=== PATIENT | male | born 1950 | race Caucasian/White ===

== ENCOUNTER 2017-12-07 14:37 | Inpatient (IN) | payer MEDICARE ==
[~2017-12-07] VITALS: Ht 170.2 cm; Wt 82.6 kg
--- NOTE | ~2017-12-07 | PN ---
PATIENT:QUINTON VEGAS MEDICAL RECORD: [id number] LOCATION:[facility] Gilbert ADMISSION DATE: 12/07/17 PROGRESS NOTE DATE OF SERVICE: 01/02/2018 SUBJECTIVE: The patient's case was discussed with staff. He has no new complaint. OBJECTIVE: The patient is minimally responsive, although he is awake and is moaning. He clearly is distressed physically and emotionally, but efforts to help him have so far been completely ineffective. He is still not eating. He did take a few ice chips yesterday. ASSESSMENT: No change in diagnoses. PLAN: The patient has end-stage dementia. He is going to be transitioned back to the alf and will have comfort care measures provided. His long-term prognosis is guarded. TRANSINT:[id number] Voice Confirmation ID: [id number] DOCUMENT ID: [id number] ROSANNA MC MD at 1223 CC: [id number] DICTATION DATE: 01/02/18 1430 MANUAL QA TESTER: 01/02/18 1533 DIS IN 01/02/18 [place] [place] [address]
--- NOTE | ~2017-12-07 | PN ---
PATIENT:QUINTON VEGAS MEDICAL RECORD: [id number] LOCATION:CarmenAUTUMNGabe AlvaradoJonathan ADMISSION DATE: 12/07/17 PROGRESS NOTE DATE OF SERVICE: 12/16/2017 SUBJECTIVE: The patient's case was discussed with staff. He has no new complaint. OBJECTIVE: The patient is in good behavioral control with limited insight about his condition. He has not been p.r.n. for 2 days. ASSESSMENT: No change in diagnoses. PLAN: Supportive and educational interventions were made. Long-term prognosis is guarded. TRANSINT:[id number] Voice Confirmation ID: [id number] DOCUMENT ID: [id number] ROSANNA MC MD at 1151 CC: [id number] DICTATION DATE: 12/16/17 1448 VENEREAL DISEASE INVESTIGATOR: 12/16/17 1633 ADM IN [place] [place] [address]
--- NOTE | ~2017-12-07 | PN ---
PATIENT:QUINTON VEGAS MEDICAL RECORD: [id number] LOCATION:MICHAEL [facility] ADMISSION DATE: 12/07/17 PROGRESS NOTE DATE OF SERVICE: 12/25/2017 SUBJECTIVE: The patient's case was discussed with staff. He has no new complaint. OBJECTIVE: The patient denies intent to harm himself or others. He generally tolerates his medicines well. ASSESSMENT: No change in diagnoses. PLAN: Supportive and educational interventions were made. Long-term prognosis is guarded. TRANSINT:[id number] Voice Confirmation ID: [id number] DOCUMENT ID: [id number] ROSANNA MC MD at 1100 CC: [id number] DICTATION DATE: 12/25/17 1125 RN ACUTE DIALYSIS: 12/25/17 1350 ADM IN [place] [place] [address]
--- NOTE | ~2017-12-07 | PN ---
PATIENT:QUINTON VEGAS MEDICAL RECORD: [id number] LOCATION:[facility] ADMISSION DATE: 12/07/17 PROGRESS NOTE DATE OF SERVICE: 12/13/2017 SUBJECTIVE: The patient's case was discussed with staff. He has no new complaint. OBJECTIVE: The patient denies intent to harm himself or others, but he is very disorganized and has been very aggressive and has required multiple doses of p.r.n. Haldol and Ativan. ASSESSMENT: No change in diagnoses. PLAN: The patient is going to be changed to a p.r.n. of Geodon. His long-term prognosis is guarded. TRANSINT:[id number] Voice Confirmation ID: [id number] DOCUMENT ID: [id number] ROSANNA MC MD at 1419 CC: [id number] DICTATION DATE: 12/13/17 1454 REHAB CONSULTANT: 12/13/17 1551 ADM IN [facility] [address] [place] [address]
--- NOTE | ~2017-12-07 | PN ---
PATIENT:QUINTON VEGAS MEDICAL RECORD: [id number] LOCATION:MICHA[facility] ADMISSION DATE: 12/07/17 PROGRESS NOTE DATE OF SERVICE: 12/09/2017 SUBJECTIVE: The patient's case was discussed with staff. He has no new complaint. OBJECTIVE: The patient is significantly agitated. He has been disruptive at times. He required p.r.n. medications on 2 occasions last night. He has little or no recollection of these events and does look a little bit sedated today. ASSESSMENT: No change in diagnoses. PLAN: I am going to start the patient on a scheduled dose of Geodon and will discontinue his Seroquel. I think his long-term prognosis is guarded. TRANSINT:[id number] Voice Confirmation ID: [id number] DOCUMENT ID: [id number] ROSANNA MC MD at 1234 CC: [id number] DICTATION DATE: 12/09/17 1440 COLLECTION ANALYST: 12/09/17 1513 ADM IN [place] [address] [place] [address]
--- NOTE | ~2017-12-07 | PN ---
PATIENT:QUINTON VEGAS MEDICAL RECORD: [id number] LOCATION:[facility] ADMISSION DATE: 12/07/17 PROGRESS NOTE DATE OF SERVICE: 12/22/2017 SUBJECTIVE: The patient's case was discussed with staff. He has no new complaint. OBJECTIVE: The patient is in good behavioral control with limited insight about his condition. He did require p.r.n. medications last night because of some agitation. ASSESSMENT: No change in diagnoses. PLAN: I will check another Depakote level today. I think his long-term prognosis is guarded. Despite the p.r.n. he had last night, he is clearly significantly better. TRANSINT:[id number] Voice Confirmation ID: [id number] DOCUMENT ID: [id number] ROSANNA MC MD at 1613 CC: [id number] DICTATION DATE: 12/22/17 1222 CHARTER BOAT OPERATOR: 12/22/17 1230 ADM IN [id number] [place] [address]
--- NOTE | ~2017-12-07 | PN ---
PATIENT:QUINTON VEGAS MEDICAL RECORD: [id number] LOCATION:MICHAEL Gilbert ADMISSION DATE: 12/07/17 PROGRESS NOTE DATE OF SERVICE: 12/31/2017 SUBJECTIVE: The patient's case was discussed with staff. He has no new complaint. OBJECTIVE: The patient is in good behavioral control with limited insight about his condition. He tolerates his medicines well. ASSESSMENT: No change in diagnoses. PLAN: Current medicines and therapies have been reviewed. The patient is going to be made comfortable. He has very poor insight about his situation. TRANSINT:[id number] Voice Confirmation ID: [id number] DOCUMENT ID: [id number] ROSANNA MC MD at 1054 CC: [id number] DICTATION DATE: 12/31/17947 READINESS PARAPROFESSIONAL: 12/31/17 1111 ADM IN [facility] [address] [place] [address]
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
--- NOTE | ~2017-12-07 | PN ---
PATIENT:QUINTON VEGAS MEDICAL RECORD: [id number] LOCATION:MICHA[facility] ADMISSION DATE: 12/07/17 PROGRESS NOTE DATE OF SERVICE: 12/11/2017 SUBJECTIVE: The patient's case was discussed with staff. He has no new complaint. OBJECTIVE: The patient is in good behavioral control with limited insight about his condition. He does tolerate his medicines well. ASSESSMENT: No change in diagnoses. PLAN: Brief supportive and educational interventions were made. The patient apparently had a lot of trouble last night with agitation and required p.r.n. Haldol and Ativan. I am going to increase the dose of his scheduled Klonopin secondary to some underlying anxiety that I think he displays through agitated behavior. TRANSINT:[id number] Voice Confirmation ID: [id number] DOCUMENT ID: [id number] ROSANNA MC MD at 1351 CC: [id number] DICTATION DATE: 12/11/17 1253 PEN TENDER: 12/11/172013 ADM IN [facility] [address] [place] [address]
--- NOTE | ~2017-12-07 | PN ---
PATIENT:QUINTON VEGAS MEDICAL RECORD: [id number] LOCATION:MICHAEL Gilbert ADMISSION DATE: 12/07/17 PROGRESS NOTE DATE OF SERVICE: 12/21/2017 SUBJECTIVE: The patient's case was discussed with staff. He has no new complaint. OBJECTIVE: The patient is in good behavioral control and significantly better with his behavior. ASSESSMENT: No change in diagnoses. PLAN: Current medicines have been reviewed. His Depakote level was therapeutic. He did require p.r.n. Geodon last night, but I believe this is the first time he has required anything in a couple of days. He is also eating better. I plan to keep him on his current medications. TRANSINT:[id number] Voice Confirmation ID: [id number] DOCUMENT ID: [id number] ROSANNA MC MD at 1127 CC: [id number] DICTATION DATE: 12/21/17 1028 CLIP LOADING MACHINE FEEDER: 12/21/17 1112 ADM IN [facility] [address] [place] [address]
--- NOTE | ~2017-12-07 | PN ---
PATIENT:QUINTON VEGAS MEDICAL RECORD: [id number] LOCATION:MICHAEL Gilbert ADMISSION DATE: 12/07/17 PROGRESS NOTE DATE OF SERVICE: 12/12/2017 SUBJECTIVE: The patient's case was discussed with staff. He has no new complaint. OBJECTIVE: The patient continues to be intermittently aggressive and difficult to redirect. He is often quite agitated. ASSESSMENT: No change in diagnoses. PLAN: Current medicines have been reviewed and will be maintained. His long-term prognosis is guarded. I am going to check levels of his anticonvulsants. TRANSINT:[id number] Voice Confirmation ID: [id number] DOCUMENT ID: [id number] ROSANNA MC MD at 1416 CC: [id number] DICTATION DATE: 12/12/17 1631 MANAGER OF BUSINESS OPERATIONS: 12/12/17 1715 ADM IN [facility] [address] [place] [address]
--- NOTE | ~2017-12-07 | PN ---
PATIENT:QUINTON VEGAS MEDICAL RECORD: [id number] LOCATION:JennyTHUANGabe AlvaradoJonathan ADMISSION DATE: 12/07/17 PROGRESS NOTE DATE OF SERVICE: 12/14/2017 SUBJECTIVE: The patient's case was discussed with staff. He has no new complaint. OBJECTIVE: The patient is in good behavioral control with limited insight about his condition. He does tolerate his medicines well. He was refusing his medicines today. Earlier in the day and last night, he was quite agitated and required p.r.n. medication. ASSESSMENT: No change in diagnoses. PLAN: Brief supportive and educational interventions were made. The patient will be maintained on current medicines. TRANSINT:[id number] Voice Confirmation ID: [id number] DOCUMENT ID: [id number] ROSANNA MC MD at 1340 CC: [id number] DICTATION DATE: 12/14/17 1446 MECHANIST: 12/14/17 1545 ADM IN [id number] [place] [address]
--- NOTE | ~2017-12-07 | PN ---
PATIENT:QUINTON VEGAS MEDICAL RECORD: [id number] LOCATION:MICHA[facility] ADMISSION DATE: 12/07/17 PROGRESS NOTE DATE OF SERVICE: 12/23/2017 SUBJECTIVE: The patient's case was discussed with staff. He has no new complaint. OBJECTIVE: The patient denies intent to harm himself or others. He generally tolerates his medicines well. Eye contact is fair. ASSESSMENT: No change in diagnoses. PLAN: Current medicines and therapies have been reviewed. Long-term prognosis is guarded. TRANSINT:[id number] Voice Confirmation ID: [id number] DOCUMENT ID: [id number] ROSANNA MC MD at 1007 CC: [id number] DICTATION DATE: 12/23/17 1650 SOFTWARE PRODUCT SPECIALIST: 12/23/17 1707 ADM IN [id number] [place] [address]
--- NOTE | ~2017-12-07 | PN ---
PATIENT:QUINTON VEGAS MEDICAL RECORD: [id number] LOCATION:MICHAEL Gilbert ADMISSION DATE: 12/07/17 PROGRESS NOTE DATE OF SERVICE: 01/01/2018 SUBJECTIVE: The patient's case was discussed with staff. He has no new complaint. OBJECTIVE: The patient is disorganized and extremely agitated. It was noticed yesterday that he had not produced urine and he was catheterized and had 1000 cc of drainage. He now has an indwelling Knight catheter. He continues to be extremely distressed and is clearly in need of comfort care measures. ASSESSMENT: No change in diagnoses. PLAN: The patient will be maintained on current medicines. His long-term prognosis is guarded. I am going to place a Duragesic patch on him for his comfort. He is already receiving Geodon and Klonopin. TRANSINT:[id number] Voice Confirmation ID: [id number] DOCUMENT ID: [id number] ROSANNA MC MD at 1417 CC: [id number] DICTATION DATE: 01/01/18 1120 ARCHITECTURE DRAFTER: 01/01/18 1307 ADM IN [facility] [address] [place] [address]
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
--- NOTE | ~2017-12-07 | PN ---
PATIENT:QUINTON VEGAS MEDICAL RECORD: [id number] LOCATION:MICHAEL Alvarado113 ADMISSION DATE: 12/07/17 PROGRESS NOTE DATE OF SERVICE: 12/29/2017 SUBJECTIVE: The patient's case was discussed with staff. He has no new complaint. OBJECTIVE: The patient denies intent to harm himself or others. He generally tolerates his medicines well. He is extremely confused. He is not eating. ASSESSMENT: No change in diagnoses. PLAN: I am going to check some baseline labs to see if the patient is dehydrated. I am also very pessimistic about his long-term well being. I have asked hospice to evaluate him for possible comfort care measures. He seems to have no intermediate ground between being overly sedated and completely unmanageable as it is documented extensively by nursing staff and myself throughout this lengthy stay. TRANSINT:[id number] Voice Confirmation ID: [id number] DOCUMENT ID: [id number] ROSANNA MC MD at 1024 CC: [id number] DICTATION DATE: 12/29/17 1038 ASSISTANT COMMUNITY DIRECTOR: 12/29/17 1126 ADM IN [facility] [address] [place] [address]
--- NOTE | ~2017-12-07 | PN ---
PATIENT:QUINTON VEGAS MEDICAL RECORD: [id number] LOCATION:MICHAEL AlvaradoJonathan ADMISSION DATE: 12/07/17 PROGRESS NOTE DATE OF SERVICE: 12/28/2017 OBJECTIVE: The patient continues to be disruptive and agitated. He is also somewhat sedated, but still restless and agitated. He is not eating well at all. I have started him on Megace. ASSESSMENT: No change in diagnoses. PLAN: Brief supportive and educational interventions were made. Long-term prognosis is guarded. I have reduced his scheduled dose of Geodon slightly. TRANSINT:[id number] Voice Confirmation ID: [id number] DOCUMENT ID: [id number] ROSANNA MC MD at 0951 CC: [id number] DICTATION DATE: 12/28/17925 DE ICER ELEMENT WINDER: 12/28/17 1205 ADM IN [place] [address] [place] [id number]
--- NOTE | ~2017-12-07 | PN ---
PATIENT:QUINTON VEGAS MEDICAL RECORD: [id number] LOCATION:MICHAEL Gilbert ADMISSION DATE: 12/07/17 PROGRESS NOTE DATE OF SERVICE: 12/20/2017 SUBJECTIVE: The patient's case was discussed with staff. He has no new complaint. OBJECTIVE: The patient is still quite confused. He did require p.r.n. medication yesterday. ASSESSMENT: No change in diagnoses. PLAN: The patient is severely impaired cognitively. His long-term prognosis is guarded. I am going to ask for a Depakote level. TRANSINT:[id number] Voice Confirmation ID: [id number] DOCUMENT ID: [id number] ROSANNA MC MD at 0827 CC: [id number] DICTATION DATE: 12/20/17 1436 FELTMAKER: 12/20/17 [address] [facility] [address] [place] [address]
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
--- NOTE | ~2017-12-07 | PN ---
PATIENT:QUINTON VEGAS MEDICAL RECORD: [id number] LOCATION:MICHAEL CarmenBettye ADMISSION DATE: 12/07/17 PROGRESS NOTE DATE OF SERVICE: 12/17/2017 SUBJECTIVE: The patient's case was discussed with staff. He has no new complaint. OBJECTIVE: The patient is taking his scheduled medicines. He has not had a p.r.n. medication for a couple of days. He is calmer, but very disorganized and only oriented to person. ASSESSMENT: No change in diagnoses. PLAN: Current medicines have been reviewed and will be maintained. Long-term prognosis is guarded. TRANSINT:[id number] Voice Confirmation ID: [id number] DOCUMENT ID: [id number] ROSANNA MC MD at 1157 CC: [id number] DICTATION DATE: 12/17/171206 WELFARE SPECIALIST: 12/17/17 1212 ADM IN [place] [id number] [place] [id number]
--- NOTE | ~2017-12-07 | PN ---
PATIENT:QUINTON VEGAS MEDICAL RECORD: [id number] LOCATION:MICHAEL Gilbert ADMISSION DATE: 12/07/17 PROGRESS NOTE DATE OF SERVICE: 12/09/2017 SUBJECTIVE: The patient's case was discussed with staff. He has no new complaint. OBJECTIVE: The patient denies intent to harm himself or others. He does tolerate his medicines well. He did require some p.r.n. medication last night. ASSESSMENT: No change in diagnoses. PLAN: Current medicines have been reviewed, both will be maintained. His Depakote level is low. I think he has not been compliant with it. I will check another Dilantin and Depakote level in a couple of days. TRANSINT:[id number] Voice Confirmation ID: [id number] DOCUMENT ID: [id number] ROSANNA MC MD at 1226 CC: [id number] DICTATION DATE: 12/10/17 1256 LOAD OUT PERSON: 12/10/17 1323 ADM IN [place] [id number] [place] [id number]
--- NOTE | ~2017-12-07 | PN ---
PATIENT:QUINTON VEGAS MEDICAL RECORD: [id number] LOCATION:MICHAEL Gilbert ADMISSION DATE: 12/07/17 PROGRESS NOTE DATE OF SERVICE: 12/26/2017 SUBJECTIVE: The patient's case was discussed with staff. He has no new complaint. OBJECTIVE: The patient denies intent to harm himself or others. He is significantly calmer today. ASSESSMENT: No change in diagnoses. PLAN: Supportive and educational interventions were made. Long-term prognosis is guarded. I am going to check another Depakote level since the last level he ran would be inconsistent with the amount that he is taking. There are some intermittent difficulties with getting him to take medications, so checking the level which I would anticipate should be around 90-100 would give me a good indication as to how much of his medicine he is actually getting. TRANSINT:[id number] Voice Confirmation ID: [id number] DOCUMENT ID: [id number] ROSANNA MC MD at 1348 CC: [id number] DICTATION DATE: 12/26/17 1133 RESEARCH RN SPEC: 12/26/17 1437 ADM IN [facility] [address] [place] [id number]
--- NOTE | ~2017-12-07 | PN ---
PATIENT:QUINTON VEGAS MEDICAL RECORD: [id number] LOCATION:MICHAEL Gilbert ADMISSION DATE: 12/07/17 PROGRESS NOTE DATE OF SERVICE: 12/15/2017 SUBJECTIVE: The patient's case was discussed with staff. He has no new complaint. OBJECTIVE: The patient has limited insight about his condition. He is still quite confused and at times easily agitated, but he seems a little bit better today. ASSESSMENT: No change in diagnoses. PLAN: The patient is taking a substantial dose of Klonopin and a moderate dose of Geodon. He has had a couple of times where he is not actively taken the medications and so I am not entirely sure that he is consistently getting it. I have checked a Depakote level and a Dilantin level. The Dilantin level is only mildly subtherapeutic. The Depakote level is nicely therapeutic. ASSESSMENT: No change in diagnoses. PLAN: Current medicines and therapies have been reviewed and will be maintained. Long-term prognosis is guarded. TRANSINT:[id number] Voice Confirmation ID: [id number] DOCUMENT ID: [id number] ROSANNA MC MD at 1406 CC: [id number] DICTATION DATE: 12/15/17 1453 CASING INSPECTOR: 12/15/17 1503 ADM IN [place] [place] [address]
--- NOTE | ~2017-12-07 | PN ---
PATIENT:QUINTON VEGAS MEDICAL RECORD: [id number] LOCATION:[facility] ADMISSION DATE: 12/07/17 PROGRESS NOTE DATE OF SERVICE: 12/18/2017 SUBJECTIVE: The patient's case was discussed with staff. He has no new complaint. OBJECTIVE: The patient does appear a little sedated, but he is still combative with personal care. He has not had a p.r.n. medication for a couple of days now. ASSESSMENT: No change in diagnoses. PLAN: Brief supportive and educational interventions were made. I am going to order basic labs since he is not eating adequately. TRANSINT:[id number] Voice Confirmation ID: [id number] DOCUMENT ID: [id number] ROSANNA MC MD at 1426 CC: [id number] DICTATION DATE: 12/18/17 1225 CHIEF NURSING EXECUTIVE: 12/18/17 1230 ADM IN [place] [id number] [place] [address]
--- NOTE | ~2017-12-07 | PN ---
PATIENT:QUINTON VEGAS MEDICAL RECORD: [id number] LOCATION:[facility] ADMISSION DATE: 12/07/17 PROGRESS NOTE DATE OF SERVICE: 12/30/2017 SUBJECTIVE: The patient's case was discussed with staff. He has no new complaint. OBJECTIVE: The patient denies intent to harm himself or others. He generally tolerates his medicines well. ASSESSMENT: No change in diagnoses. PLAN: Supportive and educational interventions were made. Long-term prognosis is guarded. He has been accepted into hospice and the efforts over the weekend will be just to make him comfortable and then transition back care to the long term. He is an end-stage dementia patient who is very restless and uncomfortable and I think that the decision to go with hospice was a good one and best under the overall circumstances. TRANSINT:[id number] Voice Confirmation ID: [id number] DOCUMENT ID: [id number] ROSANNA MC MD at 0926 CC: [id number] DICTATION DATE: 12/30/17 1109 STRUCTURES MECHANIC: 12/30/17 1143 ADM IN [facility] [address] [place] [address]
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
[~2017-12-07 14:37] MED LIST: ACETAMINOPHEN325 MG PO; ADVAIR 250/501 DISK INH; ALLEGRA-D1 TAB.SR . PO; BAYER CHEWABLE81 MG PO; BUSPAR10 MG PO; CARDURA8 MG PO; COREG 3.1253.125 MG PO; DULCOLAX5 MG PO; FLUTICASONE PRO16 GM NASAL; FOLIC ACID0.8 MG PO; MELATONIN 3 MG1 TAB PO; NITROSTAT0.4 MG SL; PROZAC10 MG PO; SEROQUEL100 MG PO; SPIRIVA18 MCG INH; VITAMIN D5000 UNIT PO; ZOCOR40 MG PO
[2017-12-07] MEDS ORDERED: LIPITOR40 MG PO (16:37)
[2017-12-07] MEDS ORDERED: BENZTROPINE ME0.5 MG PO (16:38)
[2017-12-07] MEDS ORDERED: BREO ELLIPTA 11 EACH INH (16:40)
[2017-12-07] MEDS ORDERED: KLONOPIN0.5 MG PO (16:41)
[2017-12-07] MEDS ORDERED: DEPAKENE 2250 MG/5 M PO (16:43)
[2017-12-07] MEDS ORDERED: ZYRTEC10 MG PO (16:47)
[2017-12-07] MEDS ORDERED: DEPAKOTE ER500 MG PO (16:49)
[2017-12-07] MEDS ORDERED: FLOMAX0.4 MG PO (16:51)
[2017-12-07] MEDS ORDERED: DILANTIN 12525 MG/ML PT (16:52)
[2017-12-07] MEDS ORDERED: FOLIC ACID1 MG PO (16:52)
[2017-12-07] MEDS ORDERED: ISOSORBIDE MONO30 M1 PO (16:54)
[2017-12-07] MEDS ORDERED: MULTI-DAY VITAM1 TAB PO (16:56)
[2017-12-07] MEDS ORDERED: NITROSTAT0.4 MG SL (16:57)
[2017-12-07] MEDS ORDERED: PHENOBARBI20 MG/5 ML PO (17:00)
[2017-12-07] MEDS ORDERED: REMERON15 MG PO (17:01)
[2017-12-07] MEDS ORDERED: K-TAB10 MEQ PO (17:01)
[2017-12-07] MEDS ORDERED: SEROQUEL50 MG PO (17:03)
[2017-12-07] MEDS ORDERED: ZOLOFT50 MG PO (17:04)
[2017-12-07] MEDS ORDERED: TRAZODONE HCL100 MG PO (17:06)
[2017-12-07] MEDS ORDERED: ACETAMINOPHEN325 MG PO (17:07)
[2017-12-07] MEDS ORDERED: VITAMIN D250000 UNIT PO (17:09)
[2017-12-07 18:10] VITALS: BP 89/60; BMI 29.4
[2017-12-08 10:29] VITALS: BMI 29.4
[2017-12-08 11:20] LABS: BASOPHILS 0.6 % (0-2); EOSINOPHILS 3.5 % (0-7); HEMATOCRIT 48.5 % (42.0-54.0); HEMOGLOBIN 16.2 g/dL (13.5-17.5); IMMATURE GRANULOCYTES 0.4 % (0-5); LYMPHOCYTES 32.3 % (15-50); MCH 30.1 pg (26.0-34.0); MCHC 33.4 g/dL (31.0-37.0); MCV 90.1 fL (80.0-100.0); MEAN PLATELET VOLUME 10.2 fL (7.4-10.4); MONOCYTES 9.2 % (2-11); RBC 5.38 10x6/uL (4.20-6.10); WBC 7.1 10x3/uL (4.8-10.8)
[2017-12-08 11:21] LABS: PLATELET COUNT 220 10x3/uL (130-400)
[2017-12-08 11:54] LABS: ALBUMIN 3.4 g/dL (3.4-5.0); ALKALINE PHOSPHATASE 77 U/L (46-116); ALT (SGPT) 66 U/L (10-68); BILIRUBIN - TOTAL 0.39 mg/dL (0.2-1.3); CALC OSMOLALITY 279 mosm/kg (275-300); CALCIUM 8.9 mg/dL (8.5-10.1); CARBON DIOXIDE 26.9 mmol/L (21.0-32.0); CHLORIDE - SERUM 105 mmol/L (98-107); CHOL - HDL RATIO 5.7 ratio (2.3-4.9); CHOLESTEROL, TOTAL 181 mg/dL (0-200); CREATININE - SERUM 0.8 mg/dL (0.6-1.3); HDL CHOLESTEROL 32 mg/dL (32-96); LDL CHOLESTEROL 124 mg/dL (0-100); LDL-HDL RATIO 3.9 ratio (1.5-3.5); PHENYTOIN (DILANTIN) 9.3 ug/mL (10.0-20.0); POTASSIUM - SERUM 4.2 mmol/L (3.5-5.1); PROTEIN - SERUM 7.1 g/dL (6.4-8.2); SODIUM 140 mmol/L (136-145); THYROID STIMULATING HORMONE 1.48 uIU/mL (0.36-3.74); TRIGLYCERIDE 129 mg/dL (30-200); UREA NITROGEN 9 mg/dL (7-18); VALPROIC ACID (DEPAKOTE) 22.1 ug/mL (50.0-100.0); eGFR NON AFRICAN AMERICAN > 90 mL/min (90-120)
[2017-12-08 11:57] LABS: GLUCOSE 135 mg/dL (74-106)
[2017-12-08 13:38] VITALS: Ht 170.2 cm; Wt 82.6 kg
[2017-12-08 19:38] VITALS: BP 140/68
[2017-12-09 08:19] LABS: RAPID PLASMA REAGIN Non Reactive (Non Reactive)
[2017-12-09 10:41] VITALS: BP 106/61
[2017-12-09 11:21] LABS: FOLATE (FOLIC ACID) - SERUM >20.0 ng/mL (>3.0)
[2017-12-09 20:00] VITALS: BP 117/68
[2017-12-10 03:31] LABS: APPEARANCE CLEAR (CLEAR); BILIRUBIN NEGATIVE (NEGATIVE); COLOR YELLOW (YELLOW); GLUCOSE NEGATIVE (NEGATIVE); KETONE NEGATIVE (NEGATIVE); NITRITE NEGATIVE (NEGATIVE); PROTEIN NEGATIVE (NEGATIVE); UROBILINOGEN NORMAL (NORMAL)
[2017-12-10 10:15] VITALS: BP 128/76
[2017-12-10 20:00] VITALS: BP 129/57
[2017-12-11 11:02] VITALS: BP 96/63
[2017-12-12 07:00] VITALS: BP 103/55
[2017-12-12 18:52] LABS: PHENYTOIN (DILANTIN) 9.4 ug/mL (10.0-20.0); VALPROIC ACID (DEPAKOTE) 69.6 ug/mL (50.0-100.0)
[2017-12-13 10:00] VITALS: BP 160/67
[2017-12-14 08:00] VITALS: BP 145/68
[2017-12-15 09:47] VITALS: BP 109/80
[2017-12-15 21:02] VITALS: BP 132/77
[2017-12-16 09:07] VITALS: BP 136/76
[2017-12-16 19:48] VITALS: BP 98/71
[2017-12-17 08:00] VITALS: BP 121/76
[2017-12-17 19:39] VITALS: BP 137/76
[2017-12-18 08:00] VITALS: BP 141/82
[2017-12-18 13:11] LABS: BASOPHILS 0.8 % (0-2); EOSINOPHILS 6.4 % (0-7); HEMATOCRIT 47.8 % (42.0-54.0); HEMOGLOBIN 16.2 g/dL (13.5-17.5); IMMATURE GRANULOCYTES 0.7 % (0-5); LYMPHOCYTES 28.8 % (15-50); MCH 30.7 pg (26.0-34.0); MCHC 33.9 g/dL (31.0-37.0); MCV 90.5 fL (80.0-100.0); MEAN PLATELET VOLUME 9.7 fL (7.4-10.4); MONOCYTES 23.3 % (2-11); PLATELET COUNT 184 10x3/uL (130-400); RBC 5.28 10x6/uL (4.20-6.10); RDW 14.5 % (11.5-14.5); WBC 7.5 10x3/uL (4.8-10.8)
[2017-12-18 13:43] LABS: CALC OSMOLALITY 286 mosm/kg (275-300); CALCIUM 9.2 mg/dL (8.5-10.1); CARBON DIOXIDE 27.3 mmol/L (21.0-32.0); CHLORIDE - SERUM 105 mmol/L (98-107); CREATININE - SERUM 0.8 mg/dL (0.6-1.3); GLUCOSE 101 mg/dL (74-106); POTASSIUM - SERUM 4.1 mmol/L (3.5-5.1); SODIUM 144 mmol/L (136-145); UREA NITROGEN 12 mg/dL (7-18); eGFR NON AFRICAN AMERICAN > 90 mL/min (90-120)
[2017-12-18 19:59] VITALS: BP 122/84
[2017-12-19 08:00] VITALS: BP 123/73
[2017-12-19 20:29] VITALS: BP 129/67
[2017-12-20 08:00] VITALS: BP 140/78
[2017-12-21 08:35] VITALS: BP 132/80
[2017-12-22 10:05] VITALS: BP 128/74
[2017-12-22 20:00] VITALS: BP 148/84
[2017-12-23 09:26] VITALS: BP 146/85
[2017-12-23 20:42] VITALS: BP 143/87
[2017-12-24 10:30] VITALS: BP 135/95
[2017-12-24 20:27] VITALS: BP 121/90
[2017-12-25 08:05] VITALS: BP 106/72
[2017-12-25 20:14] VITALS: BP 160/78
[2017-12-26 08:00] VITALS: BP 99/65
[2017-12-27 09:30] VITALS: BP 145/88
[2017-12-28 08:00] VITALS: BP 107/72
[2017-12-29 08:51] VITALS: BP 139/73
[2017-12-29 11:33] LABS: HEMATOCRIT 44.5 % (42.0-54.0); HEMOGLOBIN 15.1 g/dL (13.5-17.5); LYMPHOCYTES 19.7 % (15-50); MCH 29.9 pg (26.0-34.0); MCHC 33.9 g/dL (31.0-37.0); MCV 88.1 fL (80.0-100.0); MEAN PLATELET VOLUME 9.1 fL (7.4-10.4); NEUTROPHILS 59.2 % (40-80); RBC 5.05 10x6/uL (4.20-6.10); RDW 14.2 % (11.5-14.5); WBC 10.1 10x3/uL (4.8-10.8)
[2017-12-29 11:34] LABS: PLATELET COUNT 293 10x3/uL (130-400)
[2017-12-29 11:45] LABS: CALC OSMOLALITY 300 mosm/kg (275-300); CALCIUM 9.3 mg/dL (8.5-10.1); CARBON DIOXIDE 27.1 mmol/L (21.0-32.0); CHLORIDE - SERUM 112 mmol/L (98-107); CREATININE - SERUM 0.8 mg/dL (0.6-1.3); GLUCOSE 138 mg/dL (74-106); POTASSIUM - SERUM 3.4 mmol/L (3.5-5.1); SODIUM 150 mmol/L (136-145); UREA NITROGEN 15 mg/dL (7-18); eGFR NON AFRICAN AMERICAN > 90 mL/min (90-120)
[2017-12-29 19:25] VITALS: BP 139/73
[2017-12-30 10:05] VITALS: BP 140/66
[2017-12-30 20:10] VITALS: BP 101/78
[2017-12-31 14:45] LABS: APPEARANCE CLEAR (CLEAR); BILIRUBIN NEGATIVE (NEGATIVE); COLOR DK YELLOW (YELLOW); GLUCOSE NEGATIVE (NEGATIVE); KETONE NEGATIVE (NEGATIVE); NITRITE NEGATIVE (NEGATIVE); PROTEIN NEGATIVE (NEGATIVE); SPECIFIC GRAVITY 1.015 (1.005-1.020); UROBILINOGEN NORMAL (NORMAL)
[2018-01-01 08:00] VITALS: BP 123/100
[2018-01-01] MEDS ORDERED: DIFLUCAN100 MG PO (11:21)
[2018-01-01] MEDS ORDERED: Duragesic TRANSDERM (11:22)
[2018-01-01] MEDS ORDERED: KLONOPIN1 MG PO (11:22)
[2018-01-01] MEDS ORDERED: GEODON20 MG PO (11:22)
[2018-01-01] MEDS ORDERED: MEGACE ES625 MG/5 M PO (11:23)
[2018-01-01] MEDS ORDERED: PROSCAR5 MG PO (11:23)
[2018-01-01] MEDS ORDERED: PEPCID PO (11:23)
[2018-01-01] MEDS ORDERED: Bactroban ointment TOPICAL (11:23)
[2018-01-01] MEDS ORDERED: Senokot-S Tablet PO (11:23)
[2018-01-01 19:54] VITALS: BP 100/56
[2018-01-02 07:00] VITALS: BP 139/79
== END 2018-01-02 15:08 | disposition home health service (06) | DRG 57 ==
LOC: D.PSYCH 14:37
PROVIDERS: Family Medicine; Psychiatry & Neurology Psychiatry
DX: I69.318 Other symptoms and signs involving cognitive functions following cerebral infarction (principal); F01.51 Vascular dementia, unspecified severity, with behavioral disturbance; I69.354 Hemiplegia and hemiparesis following cerebral infarction affecting left non-dominant side; E87.0 Hyperosmolality and hypernatremia; I10 Essential (primary) hypertension; J44.9 Chronic obstructive pulmonary disease, unspecified; F41.1 Generalized anxiety disorder; F32.9 Major depressive disorder, single episode, unspecified; E55.9 Vitamin D deficiency, unspecified; N40.0 Benign prostatic hyperplasia without lower urinary tract symptoms; E78.5 Hyperlipidemia, unspecified; R63.0 Anorexia; Z68.29 Body mass index [BMI] 29.0-29.9, adult; K59.00 Constipation, unspecified; B37.9 Candidiasis, unspecified; R33.9 Retention of urine, unspecified; K29.70 Gastritis, unspecified, without bleeding; I25.119 Atherosclerotic heart disease of native coronary artery with unspecified angina pectoris